=== PATIENT | female | born 1945 | race Caucasian/White ===

== ENCOUNTER 2017-06-16 15:05 | Emergency (ER) | payer MEDICARE ==
[~2017-06-16] VITALS: Ht 162.6 cm; Wt 68.0 kg
[~2017-06-16 15:05] MED LIST: AMLO5 PO; AMOCLA875 PO; CITA20 PO; METO25ER PO; OMEP40CA12 PO; Prednisone20 MG PO; SIMV40 PO
[2017-06-16] MEDS ORDERED: RILUZOLE50 MG PO (15:25)
[2017-06-16] MEDS ORDERED: LOSA50 PO (15:26)
[2017-06-16] MEDS ORDERED: METO50 PO (15:26)
[2017-06-16] MEDS ORDERED: ANAS1 PO (15:27)
[2017-06-16 16:17] LABS: BASOPHILS ABSOLUTE AUTO 0.01 K/mm3 (0.00-0.23); BASOPHILS PERCENT AUTO 0 % (0-2); EOSINOPHILS ABSOLUTE AUTO 0.13 K/mm3 (0.00-0.68); EOSINOPHILS PERCENT AUTO 2 % (0-6); Hematocrit 37.1 % (33.0-51.0); IMMATURE GRAN ABSOLUTE AUTO 0.01 K/mm3 (0.00-0.10); IMMATURE GRAN PERCENT AUTO 0 % (0-1); LYMPHOCYTES ABSOLUTE AUTO 1.57 K/mm3 (0.84-5.20); LYMPHOCYTES PERCENT AUTO 24 % (21-46); MONOCYTES ABSOLUTE AUTO 0.83 K/mm3 (0.16-1.47); MONOCYTES PERCENT AUTO 13 % (4-13); Mean Corpuscular HGB Conc 32.3 g/dL (31.5-36.5); Mean Corpuscular Volume 96 fL (80-100); Mean Platelet Volume 11.4 fL (9.1-12.4); NEUTROPHILS ABSOLUTE AUTO 3.94 K/mm3 (1.96-9.15); NEUTROPHILS PERCENT AUTO 61 % (41-73); Platelet Count 241 K/mm3 (150-400); RDW Coefficient Variation 12.7 % (11.7-14.2); RDW Standard Deviation 44.3 fL (35.1-46.3); Red Blood Cell Count 3.87 M/mm3 (3.80-5.20); White Blood Cell Count 6.49 K/mm3 (4.00-11.30)
[2017-06-16 16:29] LABS: Alanine Aminotransfer (ALT/SGP 31 U/L (12-78); Albumin, Blood 3.3 g/dL (3.4-5.0); Albumin/Globulin Ratio 0.9 (0.8-1.8); Alk Phos 38 U/L (50-136); Anion Gap 4 mmol/L (6-16); Aspartate Aminotrans (AST/SGOT 21 U/L (12-37); Bilirubin, Total 0.3 mg/dL (0.1-1.0); Blood Urea Nitrogen 14 mg/dL (8-24); Bun/Creatinine Ratio 27.7 (12.0-20.0); CO2, Blood 30 mmol/L (21-32); Calcium, Blood 8.9 mg/dL (8.5-10.1); Chloride, Blood 108 mmol/L (98-108); Creatinine, Blood 0.51 mg/dL (0.40-1.00); Globulin, Blood 3.8 g/dL (2.2-4.0); Glomerular Filtration Rate >60 (60-); Glucose, Blood 101 mg/dL (70-99); Potassium, Blood 3.5 mmol/L (3.5-5.5); Sodium, Blood 142 mmol/L (136-145); Total Protein, Blood 7.1 g/dL (6.4-8.2)
== END 2017-06-16 18:39 | disposition home or self-care (01) ==
LOC: ER 15:05
PROVIDERS: Physician Assistant
DX: R10.9 Unspecified abdominal pain (principal); Z79.899 Other long term (current) drug therapy; I10 Essential (primary) hypertension; F32.9 Major depressive disorder, single episode, unspecified; E78.00 Pure hypercholesterolemia, unspecified
CPT/HCPCS: 74177; 80053; 83690; 85025; 96374; 96375; 99284; J1170; J2405; Q9967

== ENCOUNTER 2018-02-22 13:03 | Emergency (ER) | payer MEDICARE ==
[~2018-02-22] VITALS: Ht 162.6 cm; Wt 70.3 kg
[~2018-02-22 13:03] MED LIST changes: +ANAS1 PO; +LOSA50 PO; +METO50 PO; +RILUZOLE50 MG PO
[2018-02-22] MEDS ORDERED: ZOLP5 PO (13:35)
[2018-02-22] MEDS ORDERED: ALPRAZOLAM0.25 MG PO (13:35)
[2018-02-22] MEDS ORDERED: TRAZ100 PO (13:35)
[2018-02-22] MEDS ORDERED: DULO60 (13:35)
[2018-02-22] MEDS ORDERED: ALPR.25 PO (13:36)
[2018-02-22] MEDS ORDERED: Omeprazole20 M1 (13:36)
[2018-02-22] MEDS ORDERED: Citalopram HBr40 MG PO (13:36)
[2018-02-22] MEDS ORDERED: LATANOPROST2.5 ML OP (13:39)
[2018-02-22] MEDS ORDERED: BACL10 PO (13:39)
[2018-02-22] MEDS ORDERED: ASPI81CH PO (13:40)
== END 2018-02-22 14:18 | disposition home or self-care (01) ==
LOC: ER 13:03
DX: G12.21 Amyotrophic lateral sclerosis (principal); I10 Essential (primary) hypertension; F32.9 Major depressive disorder, single episode, unspecified; E78.00 Pure hypercholesterolemia, unspecified; Z79.82 Long term (current) use of aspirin; Z79.899 Other long term (current) drug therapy
CPT/HCPCS: 99283